=== PATIENT | female | born 1940 | race Caucasian/White ===

== ENCOUNTER 2016-10-13 09:37 | Emergency (ER) | payer MEDICARE, OTHER ==
[~2016-10-13] VITALS: Ht 162.6 cm; Wt 86.6 kg
[~2016-10-13 09:37] MED LIST: ASPI-630 PO; CARB1TAB43 PO; CARV25TA2 PO; DULO60CA6 PO; ESTR1PAT27 TD; HYDR-2758 PO; MELO15TA23 PO; OMEP40CA5 PO; POTA10TA5 PO; ROPI2TAB6 PO; SOLI5TAB2 PO; THYR60TA PO; THYROID; [UNRECOGNIZED DRUG - OTHER]; calcium; furosemide PO
[2016-10-13] MEDS ORDERED: IPRATRPIUM/ALBUTEROL 0.5/2.5MG 3 ML NEBU. NEB ONE (10:00)
--- NOTE | 2016-10-13 10:19 | EKG ---
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
[2016-10-13 10:38] LABS: BASO # 0.1 x10^3/uL (0.0-0.2); BASO % 1 % (0-3); EOS # 0.1 x10^3/uL (0.0-0.7); EOS % 2 % (0-3); HEMATOCRIT 37.3 % (36.0-47.0); LYMPH # 2.1 x10^3/uL (1.0-4.8); LYMPH % 27 % (24-48); MEAN CORPUSCULAR HEMOGLOBIN 27 pg (25-35); MEAN CORPUSCULAR HGB CONC 32 g/dL (31-37); MEAN CORPUSCULAR VOLUME 83 fL (79-100); MONO # 0.5 x10^3/uL (0.0-1.1); MONO % 7 % (0-9); NEUT # 4.8 x10^3uL (1.8-7.7); NEUT % 64 % (31-73); PLATELET COUNT 239 x10^3/uL (140-400); RED BLOOD COUNT 4.47 x10^6/uL (3.50-5.40); RED CELL DISTRIBUTION WIDTH 14.8 % (11.5-14.5); WHITE BLOOD COUNT 7.5 x10^3/uL (4.0-11.0)
--- NOTE | 2016-10-13 10:48 | RAD ---
Portable chest, 10/13/2016: History: Shortness of breath Comparison is made to a study from 10/27/2014. The patient's head and neck overlie the upper chest due to kyphotic patient positioning. The heart is at the upper limits of normal in size. There is calcific plaquing the aorta. The pulmonary vascularity is normal. No pulmonary infiltrates are seen. There is no evidence of pleural fluid. IMPRESSION: No acute cardiopulmonary abnormality is detected.
[2016-10-13 11:01] LABS: CALCIUM 8.7 mg/dL (8.5-10.1); CREATININE 1.2 mg/dL (0.6-1.0); GFR 43.9; POTASSIUM 3.9 mmol/L (3.5-5.1)
--- NOTE | 2016-10-13 11:05 | ED.ADGEN ---
Past History Past Medical History: Fibromyalgia, Hypertension, Other Past Surgical History: Cholecystectomy, Hysterectomy, Other Smoking: Non-smoker Alcohol Use: None Drug Use: None Adult General Chief Complaint Chief Complaint Wheezing, toe pain body rash [facility] HPI Patient is a 76-year-old occasion female who presents with shortness of breath and toe infection left foot. Toe infection started on and they've been using one dose of Ceclor then she started getting a rash on her legs. Otherwise been using topical antibiotic ointment. She states that over the weekend the toe infection got a lot worse in her rash got worse last night. She also complained of some shortness of breath. She denies any nausea vomiting diarrhea fevers or chills. She has a past medical history of Parkinson's disease, depression, hypertension. Review of Systems Review of Systems Constitutional: Denies fever or chills [] Eyes: Denies change in visual acuity, redness, or eye pain [] HENT: Denies nasal congestion or sore throat [] Respiratory: Denies cough, positive for shortness of breath [] Cardiovascular: No additional information not addressed in HPI [] GI: Denies abdominal pain, nausea, vomiting, bloody stools or diarrhea [] : Denies dysuria or hematuria [] Musculoskeletal: Denies back pain or joint pain [] Integument: Positive for rash on bilateral lower 70s and trunk Neurologic: Denies headache, focal weakness or sensory changes [] Endocrine: Denies polyuria or polydipsia [] Current Medications Current Medications Current Medications Medications (Trade) Dose Ordered Sig/Lizette Start Time Stop Time Status Last Admin Dose Admin Albuterol/ Ipratropium (Duoneb) 3 ml 1X ONCE 10/13/16 10:00 10/13/16 10:05 DC 10/13/16 10:15 3 ML Vancomycin HCl 1 each 1 each PRN DAILY PRN 10/13/16 12:00 10/13/16 12:00 1 EACH Vancomycin HCl/ Sodium Chloride (Iv Sodium Chloride 0.9% 500ml) 500 ml @ 250 mls/hr 1X ONCE 10/13/16 12:30 10/13/16 14:29 10/13/16 12:30 250 MLS/HR Allergies Allergies Allergies Coded Allergies Type Severity Reaction Last Updated Verified Sulfa (Sulfonamide Antibiotics) Allergy Unknown Unknown 07/10/15 Yes ampicillin Allergy Unknown 07/10/15 Yes Uncoded Allergies Type Severity Reaction Last Updated Verified HYDROEWEIL Allergy Unknown 07/03/15 PINE Allergy Unknown Unknown 07/17/15 Physical Exam Physical Exam Constitutional: Well developed, well nourished, no acute distress, non-toxic appearance. [] HENT: Normocephalic, atraumatic, bilateral external ears normal, oropharynx moist, no oral exudates, nose normal. [] Eyes: PERRLA, EOMI, conjunctiva normal, no discharge. [] Neck: Normal range of motion, no tenderness, supple, no stridor. [] Cardiovascular:Heart rate regular rhythm, no murmur [] Lungs & Thorax: Bilateral breath sounds clear to auscultation [] Abdomen: Bowel sounds normal, soft, no tenderness, no masses, no pulsatile masses. [] Skin: Warm, dry, erythema on the dorsum of the left foot from the second toe on the left foot extending upward, petechial type rash on trunk and lower extremities, non-blanchable. [] Back: No tenderness, no CVA tenderness. [] Extremities: No tenderness, no cyanosis, no clubbing, ROM intact, no edema. [] Neurologic: Alert and oriented X 3, normal motor function, normal sensory function, no focal deficits noted. [] Psychologic: Affect normal, judgement normal, mood normal. [] Current Patient Data Vital Signs Vital Signs Date Time Temp Pulse Resp B/P Pulse Ox O2 Delivery O2 Flow Rate FiO2 10/13/16 10:15 95 Room Air 10/13/16 09:45 97.8 68 22 Lab Results Laboratory Tests Test 10/13/16 10:19 White Blood Count 7.5x10^3/uL (4.0-11.0) Red Blood Count 4.47x10^6/uL (3.50-5.40) Hemoglobin 12.0g/dL (12.0-15.5) Hematocrit 37.3% (36.0-47.0) Mean Corpuscular Volume 83fL (79-100) Mean Corpuscular Hemoglobin 27pg (25-35) Mean Corpuscular Hemoglobin Concent 32g/dL (31-37) Red Cell Distribution Width 14.8% (11.5-14.5) H Platelet Count 239x10^3/uL (140-400) Neutrophils (%) (Auto) 64% (31-73) Lymphocytes (%) (Auto) 27% (24-48) Monocytes (%) (Auto) 7% (0-9) Eosinophils (%) (Auto) 2% (0-3) Basophils (%) (Auto) 1% (0-3) Neutrophils # (Auto) 4.8x10^3uL (1.8-7.7) Lymphocytes # (Auto) 2.1x10^3/uL (1.0-4.8) Monocytes # (Auto) 0.5x10^3/uL (0.0-1.1) Eosinophils # (Auto) 0.1x10^3/uL (0.0-0.7) Basophils # (Auto) 0.1x10^3/uL (0.0-0.2) Prothrombin Time 10.1SEC (9.4-11.4) Prothrombin Time INR 1.0 (0.9-1.1) PTT 23SEC (23-33) Sodium Level 141mmol/L (136-145) Potassium Level 3.9mmol/L (3.5-5.1) Chloride Level 102mmol/L (98-107) Carbon Dioxide Level 29mmol/L (21-32) Anion Gap 10 (6-14) Blood Urea Nitrogen 13mg/dL (7-20) Creatinine 1.2mg/dL (0.6-1.0) H Estimated GFR (Cockcroft-Gault) 43.9 Glucose Level 129mg/dL (70-99) H Lactic Acid Level 1.4mmol/L (0.4-2.0) Calcium Level 8.7mg/dL (8.5-10.1) Creatine Kinase 313U/L (26-192) H Creatine Kinase MB (Mass) 2.6ng/mL (0.0-3.6) Creatine Kinase MB Relative Index 0.8% (0-4) Troponin I Quantitative < 0.017ng/mL (0-0.055) EKG EKG EKG shows sinus rhythm with rate of 69 bpm, left axis deviation, T-wave inversions in lead 3, no ST elevations, QTC 463 ms, as interpreted by me. Radiology/Procedures Radiology/Procedures [address] [address] IMAGING REPORT Signed PATIENT: MARLY DE JESUS ACCOUNT: [id number] : 1940 LOCATION: ER AGE: 76 SEX: F EXAM STATUS: REG ER ORD. PHYSICIAN: LORI EPPS MD REASON: soa PROCEDURE: PORTABLE CHEST 1V Portable chest, 10/13/2016: History: Shortness of breath Comparison is made to a study from 10/27/2014. The patient's head and neck overlie the upper chest due to kyphotic patient positioning. The heart is at the upper limits of normal in size. There is calcific plaquing the aorta. The pulmonary vascularity is normal. No pulmonary infiltrates are seen. There is no evidence of pleural fluid. IMPRESSION: No acute cardiopulmonary abnormality is detected. DICTATED AND SIGNED BY: TARIQ PETER MD DATE: 10/13/16 1044 CC: LORI EPPS MD; RUPERT RODRIGUEZ MD ~ [address] [address] IMAGING REPORT Signed PATIENT: MARLY DE JESUS ACCOUNT: [id number] : 1940 LOCATION: ER AGE: 76 SEX: F EXAM STATUS: REG ER ORD. PHYSICIAN: LORI EPPS MD REASON: redness PROCEDURE: TOES LEFT Indication redness. Assess for underlying infection. Multiple films, 4, targeted the toes of the right foot were obtained. There is deformity, consistent with a healed fracture involving the third metatarsal. An acute bony finding is not seen. There is probable bony demineralization. There are degenerative changes seen involving the midfoot. There is soft tissue swelling of the second toe. Best demonstrated on the lateral image is slight indistinctness involving the tuft. Underlying infection, osteomyelitis, at the tuft is not excluded IMPRESSION: Possible infection, osteomyelitis, associated with the tuft of the second digit DICTATED AND SIGNED BY: CAITLIN OCAMPO MD DATE: 10/13/16 1157 CC: LORI EPPS MD; RUPERT RODRIGUEZ MD ~ Course & Med Decision Making Course & Med Decision Making Pertinent Labs and Imaging studies reviewed. (See chart for details) He has red streaking of her left foot in addition to an x-ray is suspicious for osteomyelitis. Labs are nonacute. She was started on vancomycin and family is requesting that she be sent to . Her wheezing actually improved with a breathing treatment however she does have T-wave inversions in her EKG. Her first troponin is negative. Dr. Walker Zimmerman with accepted her in transfer. Patient's been updated in addition to family and they're stable condition being transferred as soon as a bed becomes available. Final Impression Final Impression Left foot cellulitis Toe osteomyelitis Wheezing-resolved Problems: Dragon Disclaimer Dragon Disclaimer This electronic medical record was generated, in whole or in part, using a voice recognition dictation system. LORI EPPS MD October 13, 2016 11:05
[2016-10-13] MEDS ORDERED: VANCOMYCIN PER PHARMACY MC PRN (12:00)
--- NOTE | 2016-10-13 12:06 | RAD ---
Indication redness. Assess for underlying infection. Multiple films, 4, targeted the toes of the right foot were obtained. There is deformity, consistent with a healed fracture involving the third metatarsal. An acute bony finding is not seen. There is probable bony demineralization. There are degenerative changes seen involving the midfoot. There is soft tissue swelling of the second toe. Best demonstrated on the lateral image is slight indistinctness involving the tuft. Underlying infection, osteomyelitis, at the tuft is not excluded IMPRESSION: Possible infection, osteomyelitis, associated with the tuft of the second digit
[2016-10-13] MEDS ORDERED: VANCOMYCIN 2 GM in IV NORMAL SALINE 500ML 500 ML IV ONE (12:30)
--- NOTE | 2016-10-13 12:30 | NUR ---
IV Vancomycin given per rt forearm--no RT AC site was created.
[2016-10-13 14:08] LABS: CLARITY,URINE HAZY; COLOR,URINE STRAW
[2016-10-13 14:09] LABS: BACTERIA,URINE 0 /HPF (0-FEW); BILIRUBIN,URINE NEG (NEG); GLUCOSE,URINE NEG (NEG); HYALINE CASTS, URINE OCC /HPF; NITRITE,URINE NEG (NEG); RBC,URINE 0 /HPF (0-2); SQUAMOUS EPITHELIAL CELL,UR OCC /LPF; UROBILINOGEN,URINE 0.2 mg/dL (0.2 mg/dL); WBC,URINE 0 /HPF (0-4)
[2016-10-13 17:20] VITALS: BP 115/57
== END 2016-10-13 17:30 | disposition short-term general hospital (02) ==
LOC: ER 09:37
DX: L03.116 Cellulitis of left lower limb (principal); M86.9 Osteomyelitis, unspecified; G20 Parkinson's disease; I10 Essential (primary) hypertension; M79.7 Fibromyalgia; Z88.1 Allergy status to other antibiotic agents; Z88.2 Allergy status to sulfonamides; Z88.8 Allergy status to other drugs, medicaments and biological substances
CPT/HCPCS: 36415; 51702; 71010; 73660; 80048; 81001; 82553; 83605; 84484; 85027; 85610; 85730; 87040; 93005; 94640; 96365; 99285; J3370; J7040; J7620